=== PATIENT | female | born 1955 | race Caucasian/White ===

== ENCOUNTER 2020-12-17 15:15 | Outpatient (CLI) | payer MEDICARE | END 2020-12-17 15:16 | disposition home or self-care (01) | LOC: CSHMRI 15:15 | PROVIDERS: ATTEND Specialist | DX: S82.832A Other fracture of upper and lower end of left fibula, initial encounter for closed fracture (principal); S82.892A Other fracture of left lower leg, initial encounter for closed fracture; S96.812A Strain of other specified muscles and tendons at ankle and foot level, left foot, initial encounter; M65.872 Other synovitis and tenosynovitis, left ankle and foot ==

== ENCOUNTER 2021-07-26 11:47 | Outpatient (CLI) | payer MEDICARE ==
[2021-07-26 22:50] LABS: SARS-CoV-2 PCR by NAA Not Detected (NotDetected)
== END 2021-07-26 11:48 | disposition home or self-care (01) ==
LOC: CSHLAB 11:47
PROVIDERS: ATTEND Family Medicine
DX: Z01.812 Encounter for preprocedural laboratory examination (principal); Z20.822 Contact with and (suspected) exposure to COVID-19
CPT/HCPCS: U0003; U0005

== ENCOUNTER 2021-07-27 15:54 | Inpatient (IN) | payer MEDICARE ==
[2021-07-27] MEDS ORDERED: Ondansetron PF 4 MG/2 ML Vial IVP PRN (17:24)
[2021-07-27] MEDS ORDERED: Acetaminophen 325 MG TAB PO PRN (17:24)
[2021-07-27] MEDS ORDERED: Nitroglycerin 0.4 MG TAB (25 Tab Bottle) SL PRN (17:33)
[2021-07-27] MEDS ORDERED: Enoxaparin Sodium 40 MG/0.4 ML SYRINGE SC SCH (18:00)
[2021-07-27 18:01] VITALS: BMI 27.2
[2021-07-27 18:34] LABS: Troponin I Less than 0.010 ng/mL (< 0.028)
[2021-07-27] MEDS: Hydrochlorothiazide 25 MG TAB PO SCH (20:11)
[2021-07-27] MEDS: Famotidine 20 MG TAB PO SCH (20:11)
[2021-07-27 23:48] LABS: Troponin I Less than 0.010 ng/mL (< 0.028)
[2021-07-28 04:09] LABS: #Basophils 0.1 10x3/uL (0.0-0.2); #Eosinphils 0.2 10x3/uL (0.0-0.5); #Monocytes 0.6 10x3/uL (0.0-1.1); #Neutrophils 2.7 10x3/uL (1.5-8.4); %Basophils 0.9 % (0.0-2.0); %Eosinophils 3.7 % (0.0-6.0); %Lymphocytes 44.2 % (18.0-47.0); %Monocytes 9.8 % (0.0-10.0); %Neutrophils 41.2 % (40.0-75.0); Hemoglobin 13.4 g/dL (12.0-15.5); Mean Corpuscular HGB CONC 33.6 g/dL (32.0-36.0); Mean Corpuscular Hemoglobin 29.1 pg (27.0-33.0); Mean Corpuscular Volume 86.7 fl (81.6-98.3); Mean Platelet Volume 10.7 fl (7.4-10.4); Platelet Count 255 10x3/uL (150-450); RBC Distribution Width 13.2 % (11.5-14.5); White Blood Cell (WBC) Count 6.4 10x3/uL (3.5-10.5)
[2021-07-28 04:23] LABS: Anion Gap 16 mmol/L (10-20); BUN (Urea Nitrogen) 10 mg/dL (9.8-20.1); Calc. Creatinine Clearance 77 mL/min (70-130); Calcium 8.7 mg/dL (7.8-10.44); Carbon Dioxide 22 mmol/L (23-31); Chloride 108 mmol/L (98-107); Glucose 146 mg/dL (80-115); Potassium 3.5 mmol/L (3.5-5.1); Sodium 142 mmol/L (136-145)
[2021-07-28] MEDS: Famotidine 20 MG TAB PO SCH ×2 (08:56→20:20)
[2021-07-28] MEDS: Aspirin 81 mg Enteric Coated Tablet PO SCH (08:56)
[2021-07-28] MEDS: Loratadine 10 MG TAB PO SCH (08:57)
[2021-07-28] MEDS ORDERED: Enoxaparin Sodium 40 MG/0.4 ML SYRINGE SC SCH (09:00)
[2021-07-28] MEDS ORDERED: Communication Order-Pharmacy FS SCH (12:00)
[2021-07-28] MEDS: Hydrochlorothiazide 25 MG TAB PO SCH (20:20)
[2021-07-29 04:40] LABS: #Basophils 0.1 10x3/uL (0.0-0.2); #Eosinphils 0.3 10x3/uL (0.0-0.5); #Monocytes 0.7 10x3/uL (0.0-1.1); #Neutrophils 2.6 10x3/uL (1.5-8.4); %Basophils 0.9 % (0.0-2.0); %Eosinophils 4.7 % (0.0-6.0); %Lymphocytes 44.3 % (18.0-47.0); %Monocytes 9.9 % (0.0-10.0); %Neutrophils 39.7 % (40.0-75.0); Hemoglobin 13.7 g/dL (12.0-15.5); Mean Corpuscular HGB CONC 33.2 g/dL (32.0-36.0); Mean Corpuscular Volume 87.5 fl (81.6-98.3); Mean Platelet Volume 10.4 fl (7.4-10.4); Platelet Count 259 10x3/uL (150-450); RBC Distribution Width 13.2 % (11.5-14.5); Red Blood Cell (RBC) Count 4.72 10x6/uL (3.90-5.03); White Blood Cell (WBC) Count 6.6 10x3/uL (3.5-10.5)
[2021-07-29 04:48] LABS: PTT 24.4 sec (22.0-33.0); Prothrombin Time 10.9 sec (9.5-12.1)
[2021-07-29 04:51] LABS: ALT (SGPT) 22 U/L (8-55); AST (SGOT) 17 U/L (5-34); Albumin 3.9 g/dL (3.4-4.8); Alkaline Phosphatase 64 U/L (40-110); Anion Gap 14 mmol/L (10-20); BUN (Urea Nitrogen) 9 mg/dL (9.8-20.1); Bilirubin, Total 0.5 mg/dL (0.2-1.2); Calc. Creatinine Clearance 84 mL/min (70-130); Calcium 8.9 mg/dL (7.8-10.44); Carbon Dioxide 22 mmol/L (23-31); Cardiac Risk 5.6 (Less than 4.5); Chloride 111 mmol/L (98-107); Cholesterol 223 mg/dl (< 200 Desired); Globulin 2.5 g/dL (2.4-3.5); Glucose 113 mg/dL (80-115); HDL Cholesterol 40 mg/dL (>60 Neg Risk); LDL Cholesterol, Calculated 145 mg/dL; Protein, Total 6.4 g/dL (5.8-8.1); Sodium 143 mmol/L (136-145); Triglycerides 188 mg/dL (Less than 150)
[2021-07-29] MEDS: Aspirin 81 mg Enteric Coated Tablet PO SCH (05:47)
[2021-07-29] MEDS: Loratadine 10 MG TAB PO SCH (05:48)
[2021-07-29] MEDS: Famotidine 20 MG TAB PO SCH ×2 (05:48→20:36)
[2021-07-29] MEDS ORDERED: Lidocaine 1% (PF) 30 ML VIAL ONE (13:40)
[2021-07-29] MEDS ORDERED: Fentanyl 100 MCG/2 ML VIAL ONE (13:41)
[2021-07-29] MEDS ORDERED: Heparin 10,000 UNITS/ 10 ML VIAL ONE (13:41)
[2021-07-29] MEDS ORDERED: Nitroglycerin 50 MG/250 ML BOT 250 ML ONE (13:41)
[2021-07-29] MEDS ORDERED: Verapamil 5 MG/2 ML VIAL ONE (13:42)
[2021-07-29] MEDS ORDERED: Midazolam HCl 5 mg/5 ml Vial ONE (13:42)
[2021-07-29] MEDS ORDERED: Lidocaine 4% PF 5 ML AMP ONE (13:43)
[2021-07-29] MEDS ORDERED: Lidocaine 2% PF 5 ML VIAL ONE ×2 (13:44)
[2021-07-29] MEDS ORDERED: Sodium Chloride 0.9% 200 ML IV PRN (14:51)
[2021-07-29] MEDS ORDERED: Acetaminophen/Codeine 30-300mg Tablet PO PRN ×2 (14:51)
[2021-07-29] MEDS ORDERED: Nitroglycerin 0.4 MG TAB (25 Tab Bottle) SL PRN (14:51)
[2021-07-29] MEDS ORDERED: Nebivolol HCl 5 MG TAB PO SCH (16:00)
[2021-07-29] MEDS: Hydrochlorothiazide 25 MG TAB PO SCH (20:36)
[2021-07-29] MEDS ORDERED: Atorvastatin Calcium 40 MG TAB PO SCH (21:00)
[2021-07-29 22:40] VITALS: BP 137/88; TEMP 98
[2021-07-30] MEDS ORDERED: Nebivolol HCl 5 MG TAB PO SCH (09:00)
== END 2021-07-29 21:00 | disposition home or self-care (01) | DRG 204 ==
LOC: CSHTELE 17:10 → OBSVTOIN 07-29 09:27
PROVIDERS: ADMIT Internal Medicine; ATTEND Internal Medicine
PROC: 4A023N7 Measurement of Cardiac Sampling and Pressure, Left Heart, Percutaneous Approach (ICD-10-PCS; principal; 2021-07-29)
PROC: B2111ZZ Fluoroscopy of Multiple Coronary Arteries using Low Osmolar Contrast (ICD-10-PCS; 2021-07-29)
DX: R06.00 Dyspnea, unspecified (principal); D68.2 Hereditary deficiency of other clotting factors; K21.9 Gastro-esophageal reflux disease without esophagitis; R20.0 Anesthesia of skin; R20.2 Paresthesia of skin; E78.5 Hyperlipidemia, unspecified; J30.9 Allergic rhinitis, unspecified; Z88.8 Allergy status to other drugs, medicaments and biological substances; Z90.711 Acquired absence of uterus with remaining cervical stump; Z98.890 Other specified postprocedural states; Z90.89 Acquired absence of other organs; Z98.1 Arthrodesis status; Z01.812 Encounter for preprocedural laboratory examination; Z20.822 Contact with and (suspected) exposure to COVID-19
CPT/HCPCS: 70496; 70551; 80048; 80053; 80061; 84443; 85025; 85379; 85610; 85730; 92978; 92979; 93005; 93010; 93306; 93458; 93880; 96372; 99152; 99153; C1753; C1887; G0378; J1644; J1650; J2001; J2250; J3010; U0003; U0005